=== PATIENT | female | born 1955 | race Two or more races ===

== ENCOUNTER 2017-03-26 08:20 | Day surgery (SDC) | payer OTHER ==
[2017-03-24 14:46] VITALS: BMI 23.1
--- NOTE | 2017-03-25 12:31 | HP ---
- Patient Scheduled date of Surgery: 03/26/17 Scheduled Surgical Procedure: Phacoemulsification and cataract extraction with PCIOL Affected Eye: Right Chief Complaint (Indication for surgery): Decreased vision affecting ADLs - Ocular History Other Eye History: Other (high myopia) Eye Medications: cipro 4/0, AT 3/3 Previous Eye Surgery: none - Medical History Illnesses: Hypertension, Other (RA, breast CA s/p r mastectomy and chemo, chemo induced cardiomyopathy s/p defibrillator/ppm, hypothyroid,) Current Medications: Ambulatory Orders Acetaminophen [Tylenol -] 650 mg PO Q8H PRN 03/24/17 Carvedilol [Coreg -] 12.5 mg PO BID 03/24/17 Cholecalciferol (Vitamin D3) [Vitamin D3] 400 unit PO 03/24/17 Ferrous Sulfate 325 mg PO 03/24/17 Furosemide [Lasix] 20 mg PO DAILY 03/24/17 Hydroxychloroquine Sulfate 200 mg PO 03/24/17 Levothyroxine [Synthroid -] 37.5 mcg PO DAILY 03/24/17 Lisinopril 10 mg PO DAILY 03/24/17 Metformin HCl 750 mg PO 03/24/17 Methotrexate Sodium [Methotrexate] 2.5 mg PO WEEKLY 03/24/17 Prednisone [Deltasone -] 1.5 mg PO DAILY 03/24/17 Sulfasalazine 500 mg PO 03/24/17 Allergies/Adverse Reactions: Allergies Allergy/AdvReac Type Severity Reaction Status Date / Time naproxen Allergy Severe Swelling Verified 03/24/17 14:47 Ocular Examination - Best Corrected Visual Acuity Distance: Right eye: 20/200 Distance: Left eye: 20/80 - External/Slit Lamp Examination Abnormalities: spk - Intraocular Pressure Intraocular Pressure - Right eye: 15 Intraocular Pressure-Left eye: 15 - Lens Lens: 3+ NS 2+ psc - Vitreous/Retina Vitreous/Retina: c:d 0.25 m/v wnl rpe oma peripherally - Special Examination M - Right eye: -16.0 -1.0 x 040 M - Left eye: -13.0 -0.50 x 142 K - Right eye: 42/42.75 x 90 K - Left eye: 42/42.50 x 90 AL - Right eye: 29.31 AL - Left eye: 28.98 IOL bag: +8.0 hoya 251 for slight myopia IOL sulcus: +7.50 d hoya 231 IOL AC: +7.0 d MTA 4uo - Impression Impression: Cataract Right Eye - Plan Plan: Phacoemulsification and cataract extraction - IOL Right eye (topical) Post-hospital care will be provided in office on: 03/27/17
--- NOTE | 2017-03-25 12:42 | HP ---
History & Physical Update - History History: No Change - Physical Physical: No Change - Assessment Assessment: No Change - Plan Plan: No Change
[~2017-03-26 08:20] MED LIST: ACETAMINOPHEN 325 MG TABLET (FP) PO PRN; TOBRAMYCIN/DEXAMETHASONE OPHTH. OINTMENT 1 TUBE TP ONE
[2017-03-26] MEDS ORDERED: CIPROFLOXACIN 0.3% EYE DROPS 5 ML BOTTLE ONE (08:37)
[2017-03-26] MEDS ORDERED: TROPICAMIDE 1% OPHTH SOLN 15 ML BOTTLE ONE (08:37)
[2017-03-26] MEDS ORDERED: PHENYLEPHRINE 2.5% OPHTH SOLN 15 ML BOTTLE ONE ×2 (08:37→08:38)
[2017-03-26] MEDS: TROPICAMIDE 1% OPHTH SOLN 15 ML BOTTLE OP SCH ×3 (08:50→09:15)
[2017-03-26] MEDS: PHENYLEPHRINE 2.5% OPHTH SOLN 15 ML BOTTLE OP SCH ×3 (08:50→09:15)
[2017-03-26] MEDS: CIPROFLOXACIN HCL 0.3% OPHTH 2.5ML BOTTLE OP SCH ×3 (08:50→09:15)
[2017-03-26] MEDS ORDERED: MIDAZOLAM HCL 2 MG/2 ML SINGLE DOSE VIAL ONE (08:54)
[2017-03-26 09:01] VITALS: TEMP 97.3
[2017-03-26] MEDS ORDERED: LIDOCAINE HCL 2% JELLY (5 ML/TUBE) TP ONE (10:00)
[2017-03-26] MEDS ORDERED: LIDOCAINE HCL 1% PRESERVATIVE FREE - 30ML VIAL IO ONE (10:27)
[2017-03-26] MEDS ORDERED: CHONDROITIN SU A/HYALUR SOD 1 KIT IO ONE (10:28)
[2017-03-26] MEDS ORDERED: TOBRAMYCIN/DEXAMETHASONE OPHTH. OINTMENT 1 TUBE TP ONE (10:44)
--- NOTE | 2017-03-26 10:51 | OP ---
Ophthalmology Operative Note Pre-Operative Diagnosis: Cataract Affected Eye: Right Operation: Phacoemulsification and cataract extraction with PCIOL Findings: cataract right eye Substation Operator Automatic: None Anesthesiologist: Clay Vargas Anesthesia: Topical Specimens Removed: none Estimated blood loss: none Drains & Tubes with Location: none Operative Report Dictated: Yes
[2017-03-26] MEDS ORDERED: LIDOCAINE HCL/PF 1% SDV 5ML VIAL ONE (11:04)
[2017-03-26] MEDS ORDERED: BSS (NA/CA/MG/K) BALANCED SALT SOLUTION OPHTH SOLN 15 ML BOTTLE ONE (11:04)
[2017-03-26] MEDS ORDERED: TOBRA 0.3%/DEXAMETH 0.1% OPHTHALMIC SUSP 2.5 ML BTL ONE (11:04)
[2017-03-26] MEDS ORDERED: EPINEPHrine/PF 1 MG/1 ML (1:1,000) AMPULE ONE (11:04)
[2017-03-26] MEDS ORDERED: LIDOCAINE HCL 2% JELLY (5 ML/TUBE) ONE (11:04)
--- NOTE | 2017-03-26 11:16 | OP ---
DATE OF OPERATION: 03/26/2017 PREOPERATIVE DIAGNOSIS: Cataract, right eye. POSTOPERATIVE DIAGNOSIS: Mature cataract, right eye. PROCEDURE: Phacoemulsification and cataract extraction with insertion of posterior chamber intraocular lens, right eye. SURGEON: Vivian Vila MD BRAKE RELINER: None. ANESTHESIA: Topical. ANESTHESIOLOGIST: Clay Vargas MD OPERATIVE PROCEDURE: The patient received 2% viscous lidocaine gel and then was gently sedated and and prepped and draped in the usual sterile fashion, so as to expose only the right eye. Ophthalmic Betadine was instilled into the inferior fornix, and the lashes were taped out of the surgical field. An eyelid speculum was placed into the right eye. A paracentesis was made in superior clear cornea at the limbus. Nonpreserved lidocaine, 0.5 mL, was injected into the anterior chamber. Viscoelastic material was instilled into the anterior chamber via the paracentesis, and a 2.4-mm keratome was then used to create the main incision in temporal clear cornea at the limbus. A continuous curvilinear capsulorrhexis was performed using a cystotome and Utrata forceps. Hydrodissection of the lens cortex was performed using BSS on a cannula until the nucleus was noted to be freely rotating. The phacoemulsification tip was inserted via the main wound and used to sculpt 2 perpendicular grooves into the lens nucleus. The nucleus was cracked into 4 quadrants. Each quadrant was lifted out of the capsule into the iris plane and individually phacoemulcified. The remaining cortical material was then aspirated using the irrigation and aspiration port. The capsular bag was inflated using Provisc, and an AcrySof lens [id number] power diopters was loaded into its port and injected into the capsular bag. It was centered using a Sinskey hook. The residual viscoelastic material was removed from the anterior chamber using irrigation and aspiration. The wound edges were hydrated using BSS. The wound was tested for leakage. It was found to be watertight. Therefore, TobraDex ointment was placed in the eye, and the speculum was removed from the eye, and the eyelid was closed. A sterile dressing and shield were placed over the eye, and the patient was transferred to the recovery room in stable condition, told to follow up in 1 day. VIVIAN VILA M.D. [id number]
[2017-03-26 11:54] VITALS: BP 119/80; PULSE 77
== END 2017-03-26 11:30 | disposition home or self-care (01) ==
LOC: JASU-SURG 08:20
PROVIDERS: ATTEND Ophthalmology
PROC: 08RJ3JZ Replacement of Right Lens with Synthetic Substitute, Percutaneous Approach (ICD-10-PCS; principal; 2017-03-26 08:30)
DX: H25.9 Unspecified age-related cataract (principal)

== ENCOUNTER 2017-04-16 06:55 | Day surgery (SDC) | payer OTHER ==
[2017-04-15 11:20] VITALS: BMI 23.1
--- NOTE | 2017-04-15 15:50 | HP ---
- Patient Scheduled date of Surgery: 04/16/17 Scheduled Surgical Procedure: Phacoemulsification and cataract extraction with PCIOL Affected Eye: Left Chief Complaint (Indication for surgery): Decreased vision affecting ADLs - Ocular History Other Eye History: Other (high myopia) Eye Medications: cipro , AT Previous Eye Surgery: s/p ce/pciol OD +7.5 d [id number] - Medical History Illnesses: Other (breast CA s/p r mastectomy , xrt, chemo, RA, HTN, hypothyroid , chemo induced cardiomyopathy, s/p cardiac arrest s/p ppm, defibrillator, diet controlled dm) Current Medications: Ambulatory Orders Acetaminophen [Tylenol -] 650 mg PO Q8H PRN 03/24/17 Carvedilol [Coreg -] 12.5 mg PO BID 03/24/17 Cholecalciferol (Vitamin D3) [Vitamin D3] 1,000 unit PO DAILY 03/24/17 Furosemide [Lasix] 20 mg PO DAILY 03/24/17 Hydroxychloroquine Sulfate 200 mg PO BID 03/24/17 Levothyroxine [Synthroid -] 37.5 mcg PO DAILY 03/24/17 Lisinopril 10 mg PO DAILY 03/24/17 Metformin HCl 750 mg PO ACBK 03/24/17 Methotrexate Sodium [Methotrexate] 2.5 mg PO WEEKLY 03/24/17 Prednisone [Deltasone -] 7.5 mg PO DAILY 03/24/17 Amiodarone HCl 100 mg PO DAILY 03/26/17 Omeprazole Magnesium [Prilosec] 20 mg PO DAILY 03/26/17 Allergies/Adverse Reactions: Allergies Allergy/AdvReac Type Severity Reaction Status Date / Time naproxen Allergy Severe Swelling Verified 03/24/17 14:47 Ocular Examination - Best Corrected Visual Acuity Distance: Right eye: 20/30 Distance: Left eye: 20/80 - External/Slit Lamp Examination Abnormalities: none - Intraocular Pressure Intraocular Pressure - Right eye: 16 Intraocular Pressure-Left eye: 16 - Lens Lens: 3+ NS 2+ PSC - Vitreous/Retina Vitreous/Retina: c:d 0.25 m/v/p wnl - Special Examination M - Right eye: -0.50-0.50 x 115 M - Left eye: -13.0 -0.5o x 147 K - Right eye: 42/42/75 x 85 K - Left eye: 42.25/42.75 x 90 AL - Right eye: 29.31 AL - Left eye: 28.98 IOL bag: +6.50 hoya 251 IOL sulcus: +6.50 hoya 231 IOL AC: +5.50 mta 4uo - Impression Impression: Cataract Left Eye - Plan Plan: Phacoemulsification and cataract extraction - IOL Left eye Post-hospital care will be provided in office on: 04/17/17
--- NOTE | 2017-04-15 15:51 | HP ---
History & Physical Update - History History: No Change - Physical Physical: No Change - Assessment Assessment: No Change - Plan Plan: No Change
[2017-04-16] MEDS ORDERED: PHENYLEPHRINE 2.5% OPHTH SOLN 15 ML BOTTLE ONE (07:03)
[2017-04-16] MEDS ORDERED: TROPICAMIDE 1% OPHTH SOLN 15 ML BOTTLE ONE (07:03)
[2017-04-16] MEDS ORDERED: CIPROFLOXACIN 0.3% EYE DROPS 5 ML BOTTLE ONE (07:03)
[2017-04-16] MEDS ORDERED: DICLOFENAC SODIUM 0.1% OPHTHALMIC 2.5ML BOTTLE ONE (07:03)
[2017-04-16 07:16] VITALS: TEMP 98.2
[2017-04-16] MEDS: TROPICAMIDE 1% OPHTH SOLN 15 ML BOTTLE OP SCH ×3 (07:20→07:30)
[2017-04-16] MEDS: PHENYLEPHRINE 2.5% OPHTH SOLN 15 ML BOTTLE OP SCH ×3 (07:20→07:30)
[2017-04-16] MEDS ORDERED: BSS (NA/CA/MG/K) BALANCED SALT SOLUTION OPHTH SOLN 15 ML BOTTLE ONE (07:22)
[2017-04-16] MEDS ORDERED: EPINEPHrine/PF 1 MG/1 ML (1:1,000) AMPULE ONE (07:22)
[2017-04-16] MEDS ORDERED: LIDOCAINE HCL 2% JELLY (5 ML/TUBE) ONE (07:22)
[2017-04-16] MEDS ORDERED: LIDOCAINE HCL/PF 1% SDV 5ML VIAL ONE (07:22)
[2017-04-16] MEDS ORDERED: TOBRAMYCIN/DEXAMETHASONE OPHTH. OINTMENT 1 TUBE ONE (07:22)
[2017-04-16] MEDS ORDERED: POVIDONE-IODINE 5% OPHTHALMIC PREP 30 ML SOLUTION ONE (07:23)
[2017-04-16] MEDS: CIPROFLOXACIN HCL 0.3% OPHTH 2.5ML BOTTLE OP SCH ×2 (07:25→07:30)
[2017-04-16] MEDS ORDERED: LIDOCAINE HCL 2% JELLY (5 ML/TUBE) TP ONE (07:40)
[2017-04-16] MEDS ORDERED: MIDAZOLAM HCL 2 MG/2 ML SINGLE DOSE VIAL ONE (07:46)
[2017-04-16] MEDS ORDERED: LIDOCAINE HCL 1% PRESERVATIVE FREE - 30ML VIAL IO ONE (07:52)
[2017-04-16] MEDS ORDERED: CHONDROITIN SU A/HYALUR SOD 1 KIT IO ONE (07:53)
[2017-04-16] MEDS ORDERED: TOBRAMYCIN/DEXAMETHASONE OPHTH. OINTMENT 1 TUBE TP ONE (08:14)
--- NOTE | 2017-04-16 08:20 | OP ---
Ophthalmology Operative Note Pre-Operative Diagnosis: Cataract Affected Eye: Left Operation: Phacoemulsification and cataract extraction with PCIOL Findings: cataract left eye Post-Operative Diagnosis: Same as Pre-op Two Way Radio Installer: None Anesthesiologist: Victor Hugo Williamson Anesthesia: Topical Specimens Removed: none Estimated blood loss: none Operative Report Dictated: Yes
--- NOTE | 2017-04-16 08:54 | OP ---
DATE OF OPERATION: 04/16/2017 PREOPERATIVE DIAGNOSIS: Cataract, left eye. POSTOPERATIVE DIAGNOSIS: Cataract, left eye. PROCEDURE: Phacoemulsification and cataract extraction with insertion of posterior chamber intraocular lens, left eye. SURGEON: Vivian Vila MD PROCUREMENT AGENT: None. ANESTHESIA: Topical. ANESTHESIOLOGIST: Victor Hugo Williamson MD OPERATIVE PROCEDURE: The patient received viscous lidocaine 1% gel and was gently sedated and prepped and draped in the usual sterile fashion so as to expose only the left eye. Ophthalmic Betadine was instilled into the inferior fornix, and the lashes were taped out of the surgical field. An eyelid speculum was placed into the left eye. A paracentesis was made in inferior clear cornea at the limbus. Next, 0.5 mL of nonpreserved lidocaine 1% was injected into the anterior chamber. Viscoelastic material was then instilled into the anterior chamber via the paracentesis. A 2.4-mm keratome was then used to create the main incision in temporal clear cornea at the limbus. A continuous curvilinear capsulorrhexis was performed using a cystotome and Utrata forceps. Hydrodissection of the lens cortex was performed using BSS on a cannula until the nucleus was noted to be freely rotating. The phacoemulsification tip was inserted via the main wound and then used to sculpt 2 perpendicular grooves into the lens nucleus. The nucleus was crackled into 4 quadrants. Each quadrant was individually phacoemulsified in the iris plane, and the remaining cortical material was then aspirated using the irrigation and aspiration port. The capsular bag was inflated using Provisc, and a preloaded Hoya lens model 251, power +6.5 diopters was injected into the capsular bag. It was centered using a Sinskey hook. The residual viscoelastic material was removed from the anterior chamber using irrigation and aspiration. The wound edges were hydrated using BSS. The wound was tested for leakage and was found to be watertight. Therefore, TobraDex ointment was placed in the eye. The speculum was removed from the eye, and the eyelid was closed. Sterile dressing and shield were placed over the eye, and the patient was transferred to the recovery room in stable condition and told to follow up in 1 day. VIVIAN VILA M.D. [id number]
[2017-04-16 09:14] VITALS: BP 103/67; PULSE 74
== END 2017-04-16 09:30 | disposition home or self-care (01) ==
LOC: JASU-SURG 06:55
PROVIDERS: ATTEND Ophthalmology
PROC: 08RK3JZ Replacement of Left Lens with Synthetic Substitute, Percutaneous Approach (ICD-10-PCS; principal; 2017-04-16 07:30)
DX: H26.9 Unspecified cataract (principal)